=== PATIENT | female | born 1990 | race Caucasian/White ===

== ENCOUNTER 2019-03-13 21:23 | Emergency (ER) | payer BC ==
[~2019-03-13] VITALS: Ht 139.7 cm; Wt 77.8 kg
[2019-03-13 21:27] VITALS: Ht 139.7 cm; Wt 77.8 kg
[2019-03-13 22:04] LABS: BASOPHIL % 0.4 % (0-2); PLATELET COUNT 234 x10^3mcL (130-400); RED CELL DISTRIBUTION WIDTH 12.3 % (11.5-14.5)
[2019-03-14 00:30] LABS: SODIUM SERUM 144 mmol/L (136-145)
[2019-03-14 00:31] LABS: CARBON DIOXIDE 28.3 mmol/L (21-32); CHLORIDE SERUM 106 mmol/L (98-107); CREATININE SERUM 0.7 mg/dL (0.6-1.0); GFR1 > 60 mL/min; GLUCOSE SERUM 103 mg/dL (74-106); TOTAL PROTEIN, SERUM 7.7 g/dL (6.4-8.2)
[2019-03-14 00:32] LABS: ALKALINE PHOSPHATASE 111 U/L (46-116); ALT/SGPT 28 U/L (14-59); AST/SGOT 20 U/L (15-37); BILIRUBIN TOTAL 0.2 mg/dL (0.20-1.00); CALCIUM 9.1 mg/dL (8.5-10.1); T4(THYROXINE) 13.1 ug/dL (4.7-13.3)
[2019-03-14 01:31] VITALS: BP 108/62
== END 2019-03-14 01:31 | disposition home or self-care (01) ==
LOC: ED 21:23
PROVIDERS: Emergency Medicine
DX: N92.1 Excessive and frequent menstruation with irregular cycle (principal); E03.9 Hypothyroidism, unspecified; E66.9 Obesity, unspecified; Z68.39 Body mass index [BMI] 39.0-39.9, adult; Z98.890 Other specified postprocedural states
CPT/HCPCS: 36415; J7030